=== PATIENT | female | born 1985 | race Caucasian/White ===

== ENCOUNTER → 2016-08-31 | Outpatient (CLI) | payer BC ==
[~2016-08-31] MED LIST: BCPILLS PO; CITA20TA4 PO; PRENTAB26 PO
== END | disposition home or self-care (01) ==
LOC: MERGE 15:41 → C.LABSPEC 15:41
PROVIDERS: ATTEND Obstetrics & Gynecology
DX: Z34.81 Encounter for supervision of other normal pregnancy, first trimester (principal)

== ENCOUNTER → 2017-02-05 | Outpatient (CLI) | payer BC ==
[2017-02-05 11:33] LABS: GTGD 50 Grams
== END | disposition home or self-care (01) ==
LOC: C.LAB 08:46
PROVIDERS: ATTEND Obstetrics & Gynecology
DX: O09.91 Supervision of high risk pregnancy, unspecified, first trimester (principal); Z87.51 Personal history of pre-term labor

== ENCOUNTER → 2017-03-01 | Outpatient (CLI) | payer BC ==
--- NOTE | 2017-03-22 11:37 | HISTORY & PHYSICAL EXAMINATION ---
DATE OF ADMISSION: 03/01/2017 CHIEF COMPLAINT: Pelvic pressure, frequent urination, abdominal tightening, intrauterine at 33 weeks 6 days. HISTORY OF PRESENT ILLNESS: The patient is a 31-year-old 4, para 2. She has had one spontaneous AB. Her first , she had a spontaneous delivery at 25 weeks and this was via classical section. The infant did survive, but has severe debility and severe cerebral palsy. Her second delivery was at 32 weeks gestation. She went into labor. She had a repeat . This was done through a midline incision, but was a low entry into the uterus. At that time, the classical portion of the incision was palpated and was well healed. Her present is well dated. Her due date is 05/06/2017. She states she has been up all night. She has had frequent urination. She feels somewhat nauseated. She was seen in the office. She had heart tones. A cath urine specimen was sent. Cervix was posterior and closed. PAST MEDICAL HISTORY: She has 2 children, a boy age 9, severely handicapped with cerebral palsy, was born at 25 weeks; another boy age 6, born at 32 weeks gestation normal. ALLERGIES: He has no known drug allergies. PAST SURGICAL HISTORY: She had a classical . Her first had a repeat low segment section. She had an appendectomy and hernia repair. SOCIAL HISTORY: No smoking. No alcohol intake during . She works as an EMERGENCY ROOM CLINICIAN. FAMILY HISTORY: Mom is 50 in good health. Father is 50 in good health. She has a brother in good health. REVIEW OF SYSTEMS: HEAD: No symptoms of frequent or severe headaches. EYES: No symptoms of blurred vision, double vision. EARS: No symptoms of frequent ear infections, difficulty hearing. NOSE: No symptoms of frequent nosebleeds, difficulty breathing through her nose. THROAT: No symptoms of frequent or severe sore throat, difficulty swallowing. RESPIRATORY SYSTEM: No history of asthma, chest pain, shortness of breath. PHYSICAL EXAMINATION: GENERAL: Well-developed, well-nourished 31-year-old white female in moderate amount of distress. EYES: Conjunctivae are pink, sclerae white, no evidence of jaundice. EARS: Normal light reflex bilaterally. NOSE: Had normal mucosa. Septum is midline. There were no polyps. THROAT: No erythema or evidence of infection. Teeth are in good state of repair. HEAD: Was normocephalic. Normal distribution of hair. NECK: Supple. Trachea midline. Thyroid is not enlarged. There is no adenopathy appreciated. Both carotids are of good intensity. CHEST: Clear to auscultation and percussion. No wheezes, rales or rhonchi appreciated. HEART: Regular rhythm. S1 and S2 are normal. BREASTS: Normal. ABDOMEN: Consistent with a 34-week size uterus. There was a well-healed midline incision. PELVIC: Reveals cervix to be posterior, closed. MUSCULOSKELETAL: Revealed no calf tenderness. IMPRESSIONS OF THIS CASE: Status post classical section, status post low segment sections, status post appendectomy, status post hernia repair, history of premature labor, rule out premature labor.
== END | disposition home or self-care (01) ==
LOC: C.LAB 07:40
PROVIDERS: ATTEND Obstetrics & Gynecology
DX: O99.810 Abnormal glucose complicating pregnancy (principal); O36.0130 Maternal care for anti-D [Rh] antibodies, third trimester, not applicable or unspecified

== ENCOUNTER 2017-03-22 10:13 | Inpatient (IN) | payer BC ==
[2017-03-22] VITALS (10 sets, daily range): BP systolic 104–115; BP diastolic 66–75; PULSE 66–80; TEMP 36.7–36.9; O2SAT 98–99; Ht 157.5 cm; Wt 71.5 kg
[~2017-03-22] VITALS: Ht 157.5 cm; Wt 71.5 kg
[2017-03-22] MEDS ORDERED: LACTATED RINGER'S 1000ML 1,000 ML IV PRN (10:50)
[2017-03-22] MEDS ORDERED: CITRIC ACID/SODIUM CITRATE 15 ML UDC PO ONE (11:00)
[2017-03-22 11:11] LABS: MEAN CELL VOLUME 85.9 fL (80-100); MEAN CORPUSCULAR HEMOGLOBIN 30.2 pg (25-34); MEAN PLATELET VOLUME 10.3 fL (7.4-10.4); PLATELET COUNT 239 K/uL (130-400); RED BLOOD COUNT 3.84 M/uL (4.2-5.4); WHITE BLOOD COUNT 19.49 K/uL (4.8-10.8)
[2017-03-22 11:15] LABS: MEAN CORPUSCULAR HGB CONC 35.2 g/dl (32-36)
[2017-03-22] MEDS ORDERED: CEFOXITIN IV 2,000 MG in DEXTROSE 5% 50ML 50 ML IV SCH (11:30)
[2017-03-22] MEDS ORDERED: FENTANYL CITRATE INJ 50 MCG/1 ML 2 ML VIAL ONE (11:49)
[2017-03-22] MEDS ORDERED: MoRPHine SULFATE PF 1 MG/ML 10 ML AMP/VIAL ONE (11:49)
[2017-03-22] MEDS ORDERED: OXYTOCIN INJ 10 UNITS/ML VIAL ONE ×2 (11:52→12:37)
[2017-03-22] MEDS ORDERED: PHENYLEPHRINE HCL INJ 10 MG/ML VIAL ONE (11:52)
[2017-03-22] MEDS ORDERED: SODIUM CHLORIDE 0.9% 1000ML 1,000 ML IV PRN (12:34)
[2017-03-22] MEDS ORDERED: LACTATED RINGER'S 1000ML 500 ML IV PRN (12:34)
[2017-03-22] MEDS ORDERED: NALOXONE HCL INJ 1 MG in SODIUM CHLORIDE 0.9% 1000ML 1,000 ML IV PRN (12:34)
[2017-03-22] MEDS ORDERED: NALOXONE HCL INJ 0.08 MG in SYRINGE 1.8 ML IV PRN (12:34)
[2017-03-22] MEDS ORDERED: OXYTOCIN INJ 10 UNITS/ML VIAL INJ ONE (12:44)
[2017-03-22] MEDS ORDERED: NO NARCOTICS OR SEDATIVES SCH (12:45)
[2017-03-22] MEDS ORDERED: NALOXONE HCL 0.4 MG/1 ML VIAL/CARP IV PRN (12:45)
[2017-03-22] MEDS ORDERED: MoRPHine SULFATE 2 MG/ML CARP IV PRN (12:45)
[2017-03-22] MEDS ORDERED: MoRPHine SULFATE PF 1 MG/ML 10 ML AMP/VIAL EPI PRN (12:45)
[2017-03-22] MEDS ORDERED: EpHEDrine SULFATE INJ 50 MG/ML AMP IV PRN (12:45)
[2017-03-22] MEDS ORDERED: DiphenhydrAMINE HCL 50 MG/ML VIAL IV PRN (12:45)
[2017-03-22] MEDS ORDERED: ONDANSETRON INJ 2 MG/ML 2 ML VIAL IV PRN (12:45)
[2017-03-22] MEDS ORDERED: NALBUPHINE HCL INJ 10 MG/ML AMP IV PRN (12:45)
[2017-03-22] MEDS ORDERED: LANOLIN OINT EXT PRN ×2 (13:00)
[2017-03-22] MEDS ORDERED: SUPERCREAM 0.870 % 15GM JAR EXT PRN (13:00)
[2017-03-22] MEDS ORDERED: KETOROLAC TROMETHAMINE 30 MG/ML VIAL IV. PRN (13:00)
[2017-03-22] MEDS ORDERED: MAGNESIUM HYDROXIDE SUSP 30 ML UDC PO PRN (13:00)
[2017-03-22] MEDS ORDERED: HYDROCORTISONE ACETATE 25 MG SUPP PR PRN (13:00)
[2017-03-22] MEDS ORDERED: DIPHTHERIA/TETANUS/PERTUSSIS 0.5 ML SYR/VIAL IM. ONE (13:00)
[2017-03-22] MEDS ORDERED: BENZOCAINE 20% AER SPR 82.5 GM CAN EXT PRN (13:00)
[2017-03-22] MEDS ORDERED: SENNA 8.6 MG TAB PO PRN (13:00)
--- NOTE | 2017-03-22 13:32 | Anesthesiology Progress Note ---
Anesthesia Post Op Note Date & Time Mar 22, 2017 at 13:32 Notes Mental Status: alert / awake / arousable, participated in evaluation Pt Amnestic to Procedure: Yes Nausea / Vomiting: adequately controlled Pain: adequately controlled Airway Patency, RR, SpO2: stable & adequate BP & HR: stable & adequate Hydration State: stable & adequate Anesthetic Complications: no major complications apparent
--- NOTE | 2017-03-22 13:33 | Anesthesiology Progress Note ---
Anesthesia Post Op Note Date & Time Mar 22, 2017 at 13:32 Notes Mental Status: alert / awake / arousable, participated in evaluation Pt Amnestic to Procedure: Yes Nausea / Vomiting: adequately controlled Pain: adequately controlled Airway Patency, RR, SpO2: stable & adequate BP & HR: stable & adequate Hydration State: stable & adequate Neuraxial Anesthesia: was administered, sensory block is resolving Anesthetic Complications: no major complications apparent
[2017-03-22] MEDS: KETOROLAC TROMETHAMINE 30 MG/ML VIAL IV. PRN ×2 (14:05→20:30)
[2017-03-22] MEDS: OXYTOCIN INJ 20 UNITS in LACTATED RINGER'S 1000ML 1,000 ML IV SCH ×2 (14:06→22:30)
[2017-03-22] MEDS: MEPERIDINE HCL 25 MG/ML CARP IV PRN ×2 (14:47→18:28)
[2017-03-22] MEDS: SIMETHICONE 80 MG CHEW PO SCH ×2 (17:52→20:25)
[2017-03-22] MEDS ORDERED: NURSING VERBAL MED ORDER ONE (19:00)
[2017-03-22] MEDS: DOCUSATE SODIUM 100 MG CAP PO SCH (20:25)
[2017-03-22] MEDS: CITALOPRAM 20 MG TAB PO SCH (21:29)
--- NOTE | 2017-03-22 23:43 | OPERATIVE REPORT ---
DATE OF OPERATION: 03/22/2017 PROCEDURE: Repeat section. INDICATIONS FOR SURGERY: Active labor and prior classical section. POSTOPERATIVE DIAGNOSES: Same, delivered a live male infant. SURGEON: Dr. Lazcano. AGILE PROJECT MANAGER: Dr. Clark. ESTIMATED BLOOD LOSS: 500 mL. ANESTHESIA: Spinal. OPERATIVE FINDINGS AND PROCEDURE: The patient was brought to the OR table and correctly identified by armband and conversation. Spinal anesthesia was administered. Spaulding catheter was inserted aseptically in the bladder connected to gravity drainage. Then, the lower abdomen up to the umbilicus was painted with an alcohol based sterilizing solution. Then, the abdomen was draped in the usual sterile fashion and a midline incision was performed by excising the prior midline scar using electrocauterization for hemostasis, cutting down to the fascia, incising the fascia down to the pelvic brim and up towards the umbilicus. The peritoneum was then entered and then, the lower abdominal segment was then and lower uterine segment was exposed. The prior uterine incisions palpated to be intact and palpation revealed a vertex presentation. An incision was made in the lower uterine segment in about the middle of the 's head and then carried down through the myometrium into the amniotic fluid and then the incision was extended laterally. The 's head was grasped and with fundal pressure, the was delivered without difficulty. was suctioned through the mouth and the nose as soon as the head was delivered. He cried immediately. Cord was clamped and cut and the cigarette book maker was present and scrubbed at the time of delivery and took the baby. Following this, cord gases were taken and then cord blood was taken and then, the placenta was removed manually that had been attached to the posterior surface of the uterus. We then injected uterus with 10 units of Pitocin, grasped the edges of the myometrial defect with ring forceps and brought the uterus, tubes, and ovaries out through the abdominal incision and then did a deep suture approximation of heavy chromic and then a horizontal suture of heavy Vicryl, which buried the chromic approximation and I did about 3 interrupted [id number] sutures of heavy Vicryl. Following this, hemostasis was excellent. Peritoneal edges were restored with 3-0 chromic. The pelvis was cleansed of all blood clots and debris. Uterus, tubes, and ovaries were reinserted into the abdominal cavity. Now, careful anatomical abdominal approximation was performed. Peritoneum was closed with a mattress suture of chromic catgut. Heavy PDS was placed at the bottom of the defect with wide lateral bites. The edges of the fascia were approximated up to the middle of the incision and we did a separate PDS, which was started at the top of the fascial defect, once again buried and with wide bites approximated down to the middle. We then pulled the 2 sutures tied them together and bury the knot. subQ was approximated with a mattress suture of nylon in [address] and then interrupted plain and then, the skin edges were approximated with staple clips. The patient tolerated the procedure well and left the OR in good condition. I attest to the content of the Intraoperative Record and any orders documented therein. Any exception s are noted below.
[2017-03-23] VITALS (13 sets, daily range): BP systolic 105–120; BP diastolic 65–82; PULSE 66–77; TEMP 36.7–36.9; O2SAT 94–99
[2017-03-23] MEDS: KETOROLAC TROMETHAMINE 30 MG/ML VIAL IV. PRN (02:57)
[2017-03-23] MEDS ORDERED: MEPERIDINE HCL 50 MG/ML CARP IV PRN ×2 (06:00)
[2017-03-23] MEDS ORDERED: OXYCODONE/ACETAMINOPHEN 5-325 TAB PO PRN (06:00)
[2017-03-23] MEDS ORDERED: DiphenhydrAMINE HCL 50 MG/ML VIAL IV PRN (06:00)
[2017-03-23] MEDS ORDERED: ZOLPIDEM TARTRATE 5 MG TAB PO PRN (06:00)
[2017-03-23] MEDS ORDERED: ONDANSETRON INJ 2 MG/ML 2 ML VIAL IV PRN (06:00)
[2017-03-23] MEDS ORDERED: DC INTRASPINAL MORPHINE ONE (06:00)
[2017-03-23 06:18] LABS: BASO % 0.1 %; BASO ABS # 0.02 K/uL (0-0.2); COMPLETE YES; EOS % 1.2 %; HEMATOCRIT 30.1 % (37-47); IG% 1.7 %; LYMPH % 14.9 %; LYMPH ABS # 2.71 K/uL (1.2-3.4); MEAN CELL VOLUME 89.3 fL (80-100); MEAN CORPUSCULAR HEMOGLOBIN 29.1 pg (25-34); MEAN CORPUSCULAR HGB CONC 32.6 g/dl (32-36); MEAN PLATELET VOLUME 10.6 fL (7.4-10.4); MONO % 7.1 %; PLATELET COUNT 220 K/uL (130-400); RED BLOOD COUNT 3.37 M/uL (4.2-5.4); WHITE BLOOD COUNT 18.16 K/uL (4.8-10.8)
[2017-03-23] MEDS: OXYTOCIN INJ 20 UNITS in LACTATED RINGER'S 1000ML 1,000 ML IV SCH (06:18)
[2017-03-23] MEDS: PRENATAL VITAMIN TAB PO SCH (08:22)
[2017-03-23] MEDS: SIMETHICONE 80 MG CHEW PO SCH ×4 (08:22→20:09)
[2017-03-23] MEDS: FERROUS SULFATE 325 MG TAB PO SCH (08:22)
[2017-03-23] MEDS: DOCUSATE SODIUM 100 MG CAP PO SCH ×2 (08:22→20:08)
[2017-03-23] MEDS: OXYCODONE/ACETAMINOPHEN 5-325 TAB PO PRN ×5 (08:23→22:51)
[2017-03-23] MEDS: IBUPROFEN 600 MG TAB PO PRN ×4 (08:24→22:50)
--- NOTE | 2017-03-23 10:27 | Progress Note ---
Subjective Mar 23, 2017. Subjective conversation w/ patient Ambulation: ambulating normally Voiding: no voiding problems Passing Gas: Yes Diet Tolerance: Regular Diet Lochia: Small Feeding Type: Breast Feeding Review of Systems Constitutional: + fever Objective Vital Signs Date Time Temp Pulse Resp B/P (MAP) Pulse Ox O2 Delivery O2 Flow Rate FiO2 03/23/17 06:00 18 95 03/23/17 05:00 20 94 03/23/17 04:30 36.9 66 20 105/65 (78) 94 Room Air 03/23/17 04:00 18 98 03/23/17 03:00 20 97 03/23/17 02:00 18 97 03/23/17 01:00 24 98 03/23/17 00:01 20 99 03/22/17 23:18 99 Room Air 03/22/17 23:18 36.9 66 20 104/66 (79) 99 Room Air 03/22/17 23:00 20 99 03/22/17 22:30 36.7 66 20 115/75 (88) Room Air 03/22/17 22:15 99 Room Air 03/22/17 22:00 20 98 03/22/17 21:00 20 99 03/22/17 20:00 20 99 03/22/17 19:00 20 99 03/22/17 18:00 99 Room Air 03/22/17 18:00 20 98 03/22/17 17:30 36.7 80 20 110/71 (84) 99 Room Air 03/22/17 17:30 99 Room Air 03/22/17 17:30 20 99 Physical Exam General Appearance: WELL-APPEARING Respiratory/Chest: lungs clear Abdomen: normal bowel sounds, non tender Fundus: Firm, Non-Tender Incision Description: Clean, Dry & Intact Extremities: no pedal edema, no calf tenderness Laboratory Results Last 24 Hours Test 03/22/17 10:57 03/23/17 05:46 White Blood Count 19.49 K/uL 18.16 K/uL Red Blood Count 3.84 M/uL 3.37 M/uL Hemoglobin 11.6 g/dL 9.8 g/dL Hematocrit 33.0 % 30.1 % Mean Corpuscular Volume 85.9 fL 89.3 fL Mean Corpuscular Hemoglobin 30.2 pg 29.1 pg Mean Corpuscular Hemoglobin Concent 35.2 g/dl 32.6 g/dl RDW Standard Deviation 43.3 fL 45.8 fL RDW Coefficient of Variation 13.9 % 14.1 % Platelet Count 239 K/uL 220 K/uL Mean Platelet Volume 10.3 fL 10.6 fL Neutrophils (%) (Auto) 75.0 % Lymphocytes (%) (Auto) 14.9 % Monocytes (%) (Auto) 7.1 % Eosinophils (%) (Auto) 1.2 % Basophils (%) (Auto) 0.1 % Neutrophils # (Auto) 13.62 K/uL Lymphocytes # (Auto) 2.71 K/uL Monocytes # (Auto) 1.29 K/uL Eosinophils # (Auto) 0.21 K/uL Basophils # (Auto) 0.02 K/uL Immature Granulocyte % (Auto) 1.7 % Immature Granulocyte # (Auto) 0.31 K/uL Assessment and Plan Problem List Medical Problems: (1) Closed head injury Status: Acute (2) Work related injury Status: Acute Post-Op Day#: 1
[2017-03-23] MEDS: CITALOPRAM 20 MG TAB PO SCH (21:32)
[2017-03-23] MEDS ORDERED: BISACODYL 5 MG TABEC PO ONE (22:00)
[2017-03-24] MEDS: DOCUSATE SODIUM 100 MG CAP PO SCH ×2 (07:59→19:37)
[2017-03-24] MEDS: PRENATAL VITAMIN TAB PO SCH (07:59)
[2017-03-24] MEDS: SIMETHICONE 80 MG CHEW PO SCH ×4 (07:59→19:37)
[2017-03-24] MEDS: FERROUS SULFATE 325 MG TAB PO SCH (07:59)
[2017-03-24] MEDS: OXYCODONE/ACETAMINOPHEN 5-325 TAB PO PRN ×5 (08:00→23:49)
[2017-03-24] MEDS: IBUPROFEN 600 MG TAB PO PRN ×5 (08:01→23:48)
[2017-03-24 08:05] VITALS: BP 110/75; PULSE 62; TEMP 36.7; O2SAT 99
[2017-03-24 08:14] LABS: HEMATOCRIT 30.4 % (37-47)
--- NOTE | 2017-03-24 09:02 | Progress Note ---
Subjective Mar 24, 2017. Subjective conversation w/ patient Ambulation: ambulating normally Voiding: no voiding problems Passing Gas: Yes Diet Tolerance: Regular Diet Lochia: Small Feeding Type: Breast Feeding Review of Systems Constitutional: + fever Objective Vital Signs Date Time Temp Pulse Resp B/P (MAP) Pulse Ox O2 Delivery O2 Flow Rate FiO2 03/23/17 23:10 97 Room Air 03/23/17 23:10 36.9 76 18 108/70 (83) 97 Room Air 03/23/17 19:40 36.7 75 18 120/77 (91) 97 Room Air 03/23/17 16:00 36.8 69 18 108/67 (81) Room Air 03/23/17 15:50 Room Air 03/23/17 11:15 36.8 68 18 111/70 (84) 98 Room Air Physical Exam General Appearance: WELL-APPEARING Abdomen: non tender Fundus: Firm, Non-Tender Incision Description: Clean, Dry & Intact Extremities: no pedal edema, no calf tenderness Laboratory Results Last 24 Hours Test 03/24/17 06:42 Hemoglobin 9.9 g/dL Hematocrit 30.4 % Assessment and Plan Problem List Medical Problems: (1) Closed head injury Status: Acute (2) Work related injury Status: Acute Post-Op Day#: 2 Continue Routine Care: hgb 9.9 no symptoms
[2017-03-24] MEDS ORDERED: BISACODYL 10 MG SUPP PR PRN (13:00)
[2017-03-24 15:28] VITALS: BP 117/74; PULSE 69; TEMP 36.8
[2017-03-24] MEDS: CITALOPRAM 20 MG TAB PO SCH (21:27)
[2017-03-24 23:15] VITALS: BP 118/75; PULSE 60; TEMP 36.8
[2017-03-25 07:30] VITALS: BP 115/76; PULSE 77; TEMP 36.6; O2SAT 94
[2017-03-25] MEDS: SIMETHICONE 80 MG CHEW PO SCH ×4 (08:54→20:08)
[2017-03-25] MEDS: FERROUS SULFATE 325 MG TAB PO SCH (08:54)
[2017-03-25] MEDS: PRENATAL VITAMIN TAB PO SCH (08:54)
[2017-03-25] MEDS: IBUPROFEN 600 MG TAB PO PRN ×4 (08:55→21:17)
[2017-03-25] MEDS: OXYCODONE/ACETAMINOPHEN 5-325 TAB PO PRN ×4 (08:55→21:18)
[2017-03-25] MEDS: DOCUSATE SODIUM 100 MG CAP PO SCH ×2 (08:55→20:08)
--- NOTE | 2017-03-25 09:16 | Progress Note ---
Subjective Mar 25, 2017. Subjective conversation w/ patient Ambulation: ambulating normally Voiding: no voiding problems Passing Gas: Yes Diet Tolerance: Regular Diet Lochia: Small Feeding Type: Breast Feeding Review of Systems Constitutional: + fever Objective Vital Signs Date Time Temp Pulse Resp B/P (MAP) Pulse Ox O2 Delivery O2 Flow Rate FiO2 03/24/17 23:15 36.8 60 20 118/75 (89) Room Air 03/24/17 23:15 Room Air 03/24/17 15:31 Room Air 03/24/17 15:28 36.8 69 20 117/74 (88) Room Air Physical Exam General Appearance: WELL-APPEARING Abdomen: normal bowel sounds, non tender Fundus: Firm, Non-Tender Incision Description: Erythema Extremities: no pedal edema, no calf tenderness Assessment and Plan Problem List Medical Problems: (1) Closed head injury Status: Acute (2) Work related injury Status: Acute Post-Op Day#: 3 Continue Routine Care: abdominal incision is red and painful suspect cellulitis will start antibiotics
[2017-03-25] MEDS: CEFOXITIN IV 2,000 MG in DEXTROSE 5% 50ML 50 ML IV SCH ×3 (11:02→21:55)
[2017-03-25 15:50] VITALS: BP 105/60; PULSE 65; TEMP 36.5
[2017-03-25 20:00] VITALS: BP 114/75; PULSE 69; TEMP 36.6
[2017-03-25] MEDS: CITALOPRAM 20 MG TAB PO SCH (21:55)
[2017-03-25 23:45] VITALS: BP 121/81; PULSE 72; TEMP 36.6; O2SAT 97
[2017-03-26] MEDS: IBUPROFEN 600 MG TAB PO PRN ×5 (01:31→17:18)
[2017-03-26] MEDS: CEFOXITIN IV 2,000 MG in DEXTROSE 5% 50ML 50 ML IV SCH ×2 (04:17→09:54)
[2017-03-26 04:20] VITALS: BP 115/79; PULSE 54; TEMP 36.6; O2SAT 97
[2017-03-26] MEDS: OXYCODONE/ACETAMINOPHEN 5-325 TAB PO PRN ×4 (05:30→17:18)
[2017-03-26 07:51] VITALS: BP 109/72; PULSE 63; TEMP 36.8; O2SAT 97
[2017-03-26] MEDS: FERROUS SULFATE 325 MG TAB PO SCH (08:37)
[2017-03-26] MEDS: SIMETHICONE 80 MG CHEW PO SCH ×3 (08:37→17:29)
[2017-03-26] MEDS: DOCUSATE SODIUM 100 MG CAP PO SCH (08:37)
[2017-03-26] MEDS: PRENATAL VITAMIN TAB PO SCH (08:37)
--- NOTE | 2017-03-26 10:14 | Progress Note ---
Subjective Mar 26, 2017. Subjective conversation w/ patient Ambulation: ambulating normally Voiding: no voiding problems Passing Gas: Yes Diet Tolerance: Regular Diet Lochia: Small Feeding Type: Breast Feeding Review of Systems Constitutional: + fever Objective Vital Signs Date Time Temp Pulse Resp B/P (MAP) Pulse Ox O2 Delivery O2 Flow Rate FiO2 03/26/17 07:51 36.8 63 18 109/72 (84) 97 Room Air 03/26/17 04:20 36.6 54 16 115/79 (91) 97 Room Air 03/25/17 23:45 36.6 72 20 121/81 (94) 97 Room Air 03/25/17 23:45 97 Room Air 03/25/17 20:00 36.6 69 18 114/75 (88) Room Air 03/25/17 15:50 Room Air 03/25/17 15:50 36.5 65 18 105/60 (75) Room Air Physical Exam General Appearance: WELL-APPEARING Abdomen: non tender Fundus: Firm, Non-Tender Incision Description: Erythema Extremities: no pedal edema, no calf tenderness Assessment and Plan Problem List Medical Problems: (1) Closed head injury Status: Acute (2) Work related injury Status: Acute Post-Op Day#: 4 Continue Routine Care: decreased redness incision is improving on antibiotics
--- NOTE | 2017-03-26 10:17 | Discharge Instructions ---
Discharge Instructions Date of Service Mar 26, 2017. Admission Reason for Admission: R/O Labor Discharge Discharge Diagnosis / Problem: labor prior classical section Discharge Goals Goal(s): Routine recovery after Activity Recommendations Activity Limitations: as noted below ACTIVITY RECOMMENDATIONS: * Gradual return to full activity over the next 2-3 weeks. * No lifting - nothing heavier than baby over the next 2-3 weeks. * Do not engage in vigorous exercise, sexual activity or sports for 6 weeks. * Do not drive or operate any motorized equipment for 14 days. * You may shower/bathe daily. DIET: Resume Previous Diet If Breast-feeding: * Increase caloric intake by 500 calories, eat 3 well balanced meals, 2 high protein snacks a day and drink 6-8 8oz. glasses of fluid per day. BREAST CARE: If you are not breast feeding: * Wear a supportive bra 24 hours a day for one to two weeks. * Avoid stimulating your breasts and nipples as much as possible during the first few weeks after delivery. * When taking a shower, have the warm water hit your back, not breasts. * When your breasts feel full, apply ice packs. Usually three to four times a day helps ease the discomfort. * Take a mild pain medication (Tylenol / Motrin) when you are uncomfortable. If breast feeding: * Use breast milk to lubricate nipples. Lansinoh cream may be used for sore nipples. You do not need to remove cream prior to breast feeding. If using a different brand of cream, check the label for directions regarding removal of cream prior to nursing. * Wear a supportive bra. * If having problems with breasts or breast feeding, call a senior wind energy consultant or your health care provider. VITAMINS: * One tablet daily. Continue taking while or until you have your check up in 6 weeks. SPECIAL CARE INSTRUCTIONS: * Vaginal rest (no tampons, douching, intercourse) until after doctor's visit. * control as discussed with doctor. * Verbalizes understanding of car seat law as reviewed with patient by nursing. * Car Seat hand-out given and reviewed with patient by nursing. * Shaken baby information reviewed with patient by nursing. Call you doctor if: * Heavy bleeding (saturating a pad an hour) or passing clots the size of your fist. Bleeding has a foul smelling odor. * A fever greater than 100.4 degrees F (38 degrees C) on two occasions four hours apart and/or chills. * Unusual pain in the pelvic or vaginal areas. Pain should improve each day . * Call the doctor for any increased redness, drainage or swelling around the incision and any pain unrelieved by prescribed pain medication. * Signs and symptoms of phlebitis(possible blood clots forming in the veins): leg pain, warm, red or swollen area on leg. * "Baby Blues" lasting longer than two weeks. If you have any questions or concerns, call your health care practitioner at [phone]. FOLLOW-UP VISIT: Follow-up visit for examination in 6 weeks. Incision check (staple removal) in 1 week. Please call office at [phone] if not already scheduled. . Instructions / Follow-Up Instructions / Follow-Up ACTIVITY RECOMMENDATIONS: * Gradual return to full activity over the next 2-3 weeks. * No lifting - nothing heavier than baby over the next 2-3 weeks. * Do not engage in vigorous exercise, sexual activity or sports for 6 weeks. * Do not drive or operate any motorized equipment for 14 days. * You may shower/bathe daily. DIET: Resume Previous Diet If Breast-feeding: * Increase caloric intake by 500 calories, eat 3 well balanced meals, 2 high protein snacks a day and drink 6-8 8oz. glasses of fluid per day. BREAST CARE: If you are not breast feeding: * Wear a supportive bra 24 hours a day for one to two weeks. * Avoid stimulating your breasts and nipples as much as possible during the first few weeks after delivery. * When taking a shower, have the warm water hit your back, not breasts. * When your breasts feel full, apply ice packs. Usually three to four times a day helps ease the discomfort. * Take a mild pain medication (Tylenol / Motrin) when you are uncomfortable. If breast feeding: * Use breast milk to lubricate nipples. Lansinoh cream may be used for sore nipples. You do not need to remove cream prior to breast feeding. If using a different brand of cream, check the label for directions regarding removal of cream prior to nursing. * Wear a supportive bra. * If having problems with breasts or breast feeding, call a senior wind energy consultant or your health care provider. VITAMINS: * One tablet daily. Continue taking while or until you have your check up in 6 weeks. SPECIAL CARE INSTRUCTIONS: * Vaginal rest (no tampons, douching, intercourse) until after doctor's visit. * control as discussed with doctor. * Verbalizes understanding of car seat law as reviewed with patient by nursing. * Car Seat hand-out given and reviewed with patient by nursing. * Shaken baby information reviewed with patient by nursing. Call you doctor if: * Heavy bleeding (saturating a pad an hour) or passing clots the size of your fist. Bleeding has a foul smelling odor. * A fever greater than 100.4 degrees F (38 degrees C) on two occasions four hours apart and/or chills. * Unusual pain in the pelvic or vaginal areas. Pain should improve each day . * Call the doctor for any increased redness, drainage or swelling around the incision and any pain unrelieved by prescribed pain medication. * Signs and symptoms of phlebitis(possible blood clots forming in the veins): leg pain, warm, red or swollen area on leg. * "Baby Blues" lasting longer than two weeks. If you have any questions or concerns, call your health care practitioner at [phone]. FOLLOW-UP VISIT: Follow-up visit for examination in 6 weeks. Incision check (staple removal) in 1 week. Please call office at [phone] if not already scheduled. Current Hospital Diet Patient's current hospital diet: Regular OB Diet Discharge Diet Recommended Diet: Regular Diet Procedures Procedures Performed: Low uterine transverse incision, repeat caesarean section, delivery of live male child at 1217 Pending Studies Studies pending at discharge: no Medical Emergencies . Who to Call and When: Medical Emergencies: If at any time you feel your situation is an emergency, please call 911 immediately. . Non-Emergent Contact Non-Emergency issues call your: Heading Matcher And Assembler Call Non-Emergent contact if: temperature is above 100.5 . . "Provider Documentation" section prepared by David Lazcano. . VTE Core Measure Inpt VTE Proph given/why not?: Treatment not indicated
--- NOTE | 2017-03-26 10:41 | DISCHARGE SUMMARY ---
Mrs. Banks has an interesting obstetrical history. Her first infant was born at 25 weeks, premature labor. She came into the hospital fully dilated. He suffers from severe cerebral palsy and blindness. Her second infant was at about 32 weeks, who is a boy, ended up at [facility] for several days, eventually recovered, no problems. Present is complicated by a history of a classical with her first delivery and also history of premature labor and very early premature labor. At this particular , she was started on Micco weekly shots at 16 weeks. She also received prophylactic steroids, received 2 sets of 2 doses. Her last dose was about a week prior to admission consisted of two 12-mg doses of Celestone by 24 hours. On the day of admission, she had been up all night. She complained of pelvic pain and pressure. She was sent to the hospital for monitoring, where it was found out that she was in obvious labor. The usual preop labs were drawn and under spinal anesthesia, she underwent a repeat low segment section. At the time of surgery, it was noted that the classical incision had healed well and that this was her second low segment entry. did very well. Apgars were good. The did not need to be transferred. Her preoperative hemoglobin was 11.6 and hematocrit 33.0. Postoperatively, hemoglobin fell to 9.9 and hematocrit 30.4. Postoperative course was complicated by cellulitis of the incision. She was kept an extra day and she was started on IV Mefoxin 2 grams every 6 hours and 24 hours later, the incision was improved. It was less tender. It was less red and she was discharged on Augmentin 875 mg twice a day for 10 days and usual prescriptions for Percocet and Motrin.
[2017-03-26 16:00] VITALS: BP 121/78; PULSE 66; TEMP 36.4; O2SAT 97
[2017-03-26 19:34] VITALS: BP_DIAS 78; PULSE 66; TEMP 36.4
== END 2017-03-26 19:15 | disposition home or self-care (01) | DRG 766 ==
LOC: C.OPB 10:13 → C.LD 10:13 → C.OPB 10:54 → C.LD 10:54 → C.OBG 15:48
PROVIDERS: ADMIT Obstetrics & Gynecology; ATTEND Obstetrics & Gynecology
PROC: 10D00Z0 Extraction of Products of Conception, High, Open Approach (ICD-10-PCS; principal; 2017-03-22 11:42)
DX: O34.212 Maternal care for vertical scar from previous cesarean delivery (principal); O86.0 Infection of obstetric surgical wound; O09.213 Supervision of pregnancy with history of pre-term labor, third trimester; Z3A.33 33 weeks gestation of pregnancy; Z37.0 Single live birth; Y83.8 Other surgical procedures as the cause of abnormal reaction of the patient, or of later complication, without mention of misadventure at the time of the procedure

== ENCOUNTER → 2017-03-22 | Outpatient (CLI) | payer BC ==
[2017-03-22 15:43] LABS: URINE APPEARANCE CLEAR (CLEAR); URINE BILIRUBIN NEG (NEG); URINE COLOR YELLOW; URINE NITRITE NEG (NEG); URINE SPECIFIC GRAVITY 1.014 (1.000-1.030); UROBILINOGEN NEG (NEG)
[2017-03-22 15:57] LABS: MANUAL MICROSCOPIC REQUIRED? NO; REVIEW REQ? NO
== END | disposition home or self-care (01) ==
LOC: C.LABSPEC 14:07
PROVIDERS: ATTEND Obstetrics & Gynecology
DX: Z34.83 Encounter for supervision of other normal pregnancy, third trimester (principal); R35.0 Frequency of micturition